=== PATIENT | male | born 1965 | race Caucasian/White ===

== ENCOUNTER → 2019-07-15 | Outpatient (CLI) | payer BC ==
--- NOTE | 2019-07-16 23:09 | CT ---
EXAMINATION TYPE: CT abdomen pelvis w con DATE OF EXAM: 07/15/2019 COMPARISON: NONE HISTORY: 53-year-old male Right lower quadrant pain TECHNIQUE: Contiguous axial scanning of the abdomen and pelvis following administration of 100 ml Iso morenita 300 IV contrast. Delayed images through the kidneys and coronal/sagittal reconstructions perform ed. CT DLP: 1792 mGycm Automated exposure control for dose reduction was used. FINDINGS: Heart normal size without pericardial effusion. Lung bases clear without pleural effusion. Tiny hiatal hernia. Liver mildly enlarged at 18.0 cm without focal lesion. Portal venous system is patent. No biliary vanessa concepción dilatation. Gallbladder, adrenal glands, left kidney, spleen, and pancreas appear within normal limits. Punctate 2 mm nonobstructive right renal calculus. Symmetric uptake and excretion of contrast from roger th kidneys. No dilated small bowel, free fluid, or free air. Scattered nonenlarged mesenteric lymph nodes. Normal appendix. Oral contrast progressed to the lower descending colon. Proximal to mid sigmoid is r edundant. Annular narrowing at the rectosigmoid junction may be secondary to peristaltic contraction, refer to axial image 81. In addition, there is circumferential wall thickening involving a segment o f the proximal sigmoid colon, refer to axial and 75 which may be secondary to incomplete distention. Tiny fatty umbilical hernia. Prostate gland enlargement 5.9 cm wide with some mild heterogeneous enhancement. Bladder is urine dis tended. No abnormal fluid collection in the pelvis or pelvic lymphadenopathy. Bones: Antegrade intramedullary nail with single proximal interlocking screw within the visualized ri ght femur. No osseous destructive process. IMPRESSION: 1. FOCAL ANNULAR NARROWING AT THE RECTOSIGMOID JUNCTION MAY BE SECONDARY TO A PERISTALTIC CONTRACTION . DIRECT VISUALIZATION RECOMMENDED IF ROUTINE COLONOSCOPY SCREENING HAS NOT BEGUN. 2. ADDITIONAL CIRCUMFERENTIAL WALL THICKENING INVOLVING A SEGMENT OF PROXIMAL SIGMOID COLON COULD BE SECONDARY TO NONSPECIFIC MILD COLITIS OR NONDISTENTION. 3. PUNCTATE 2 MM NONOBSTRUCTIVE RIGHT RENAL CALCULUS. 4. PROSTATOMEGALY OF 5.9 CM WIDE WITH SOME MILD HETEROGENEOUS ENHANCEMENT COULD BE SECONDARY TO BPH. CORRELATE WITH PSA VALUES.
== END | disposition home or self-care (01) ==
LOC: RADCTMAIN 09:26
PROVIDERS: ATTEND Family Medicine
DX: N20.0 Calculus of kidney (principal); N40.0 Benign prostatic hyperplasia without lower urinary tract symptoms; K63.89 Other specified diseases of intestine
CPT/HCPCS: 74177; Q9967